=== PATIENT | female | born 1990 | race Caucasian/White ===

== ENCOUNTER 2017-01-22 16:19 | Emergency (ER) | payer BC ==
[2017-01-22 16:24] VITALS: BP 109/67
--- NOTE | 2017-01-22 16:28 | UC ---
Dental HPI - HPI Summary HPI Summary: tooth has been broken for a while, but I has broken more pain began 2 days ago- and now right side of face is swollen - History of Current Complaint Chief Complaint: UCDentalProblem Stated Complaint: TOOTH COMPLAINT Time Seen by Provider: 01/22/17 16:22 Hx Obtained From: Patient Hx Last Menstrual Period: 01/22/17 ?: No Onset/Duration: Worse Since - this morning awoke with swollen r side of lucas Severity: Severe Pain Intensity: 10 Aggravating: Heat, Cold, Chewing Alleviating: Nothing Related History: Previous Dental Care on Same Tooth - Allergies/Home Medications Allergies/Adverse Reactions: Allergies Allergy/AdvReac Type Severity Reaction Status Date / Time Penicillins Allergy Severe Hives Verified 01/22/17 16:25 Sulfa Drugs Allergy Severe Hives Verified 01/22/17 16:25 PMH/Surg Hx/FS Hx/Imm Hx Previously Healthy: No Psychological History: Anxiety - Surgical History Surgical History: Yes Surgery Procedure, Year, and Place: C-SECTIONS; TUBAL LIGATION; LUMP REMOVED LEFT LEG (BENIGN) - Family History Known Family History: Positive: None - Social History Occupation: Unemployed Lives: With Family Alcohol Use: Rare Substance Use Type: None Smoking Status (MU): Current Every Day Smoker Type: Cigarettes Amount Used/How Often: 1/2 PPD Household Exposure Type: Cigarettes Cessation Counseling: Patient Advised to Stop - Immunization History Most Recent Influenza Vaccination: never Most Recent Tetanus Shot: unknown Review of Systems Constitutional: Negative Skin: Negative Eyes: Negative ENT: Negative, Dental Pain - right lower last 2 molars Respiratory: Negative Cardiovascular: Negative Gastrointestinal: Negative Genitourinary: Negative Motor: Negative Neurovascular: Negative Musculoskeletal: Negative Neurological: Negative Psychological: Negative All Other Systems Reviewed And Are Negative: Yes Physical Exam Triage Information Reviewed: Yes Appearance: Well-Appearing, Well-Nourished, Pain Distress Vital Signs Reviewed: Yes Eye Exam: Normal Eyes: Positive: Conjunctiva Clear ENT Exam: Normal ENT: Positive: Normal ENT inspection, Hearing grossly normal, Pharynx normal. Negative: Nasal congestion, Nasal drainage, Trismus, Muffled/hoarse voice Dental Exam: Normal Dental: Positive: Percussion Tenderness @ - 31 &32, Gross Decay/Caries @ - 31& 31, Abscess @ - right lower jaw Neck exam: Normal Neck: Positive: Supple, Nontender, No Lymphadenopathy Respiratory Exam: Normal Respiratory: Positive: Chest non-tender, No respiratory distress, No accessory muscle use Cardiovascular Exam: Normal Cardiovascular: Positive: RRR, Pulses Normal, Brisk Capillary Refill Musculoskeletal Exam: Normal Musculoskeletal: Positive: Strength Intact, ROM Intact, No Edema Neurological Exam: Normal Neurological: Positive: Alert, Muscle Tone Normal Psychological Exam: Normal Skin Exam: Normal Dental Complaint Course/Dx - Course Course Of Treatment: Pain med, antibiodic, dental clinic information , follow with dentist [facility] on Tuesday - Differential Dx/Diagnosis Differential Diagnosis/Dx: Dental Abscess, Dental Caries, Odontogenic Pain Provider Diagnoses: Dental caries 31 & 32 with abscess Discharge - Discharge Plan Condition: Stable Disposition: HOME Prescriptions: Clindamycin Cap(NF) [Cleocin 300 mg Cap(NF)] 300 mg PO Q6H #40 cap HYDROcodone/ACETAMIN 5-325 MG* [[place] 5-325 TAB*] 1 tab PO Q6H PRN #15 tab MDD 4 PRN Reason: Pain Ibuprofen TAB* [Motrin TAB* 600 MG] 600 mg PO Q6H PRN #30 tab PRN Reason: Pain Patient Education Materials: Dental Abscess (ED), Toothache (ED) Referrals: Frantz Mcclellan MD [Primary Care Provider] - If Needed Additional Instructions: Follow with Dentist [facility]
[2017-01-22] MEDS ORDERED: HYDROcodone/ACETAMIN 5-325 MG* 1 TAB PO ONE (16:30)
== END 2017-01-22 16:45 | disposition home or self-care (01) ==
LOC: UCEAST 16:19
DX: K02.9 Dental caries, unspecified (principal); K04.7 Periapical abscess without sinus; Z72.0 Tobacco use
CPT/HCPCS: 99212; G0463

== ENCOUNTER 2017-06-07 18:16 | Emergency (ER) | payer SELFPAY ==
[2017-06-07 18:55] VITALS: BP 114/77
[2017-06-07] MEDS ORDERED: Clindamycin CAP* 150 MG PO ONE (20:09)
--- NOTE | 2017-06-07 20:13 | UC ---
UC Dental HPI - HPI Summary HPI Summary: RIGHT LOWER JAW DENTAL PAIN. TENDERNESS. HISTORY OF SAME CONCERN (01/22/17, , 05/31/15, 05/26/15). HAS NOT SEEN DENTIST DUE TO COST. NO FEVER. - History of Current Complaint Hx Obtained From: Patient Hx Last Menstrual Period: 05/08/17 Onset/Duration: Gradual Onset, Lasting Days, Still Present Related History: Previous Dental Care on Same Tooth <Meng Gaston - Last Filed: 06/07/17 20:06> <Sheri Rivera - Last Filed: 06/07/17 20:26> - History of Current Complaint Chief Complaint: UCDentalProblem Stated Complaint: TOOTH ACHE Time Seen by Provider: 06/07/17 19:32 - Allergies/Home Medications Allergies/Adverse Reactions: Allergies Allergy/AdvReac Type Severity Reaction Status Date / Time Penicillins Allergy Severe Hives Verified 06/07/17 18:48 Sulfa Drugs Allergy Severe Hives Verified 06/07/17 18:48 PMH/Surg Hx/FS Hx/Imm Hx Previously Healthy: Yes - Surgical History Surgical History: Yes Surgery Procedure, Year, and Place: C-SECTIONS; TUBAL LIGATION; LUMP REMOVED LEFT LEG (BENIGN) - Family History Known Family History: Positive: None - Social History Occupation: Works From/At Home Lives: With Family Alcohol Use: Rare Substance Use Type: None Smoking Status (MU): Current Every Day Smoker Type: Cigarettes Amount Used/How Often: 1/2 PPD Household Exposure Type: Cigarettes - Immunization History Most Recent Influenza Vaccination: never Most Recent Tetanus Shot: unknown <Meng Gaston - Last Filed: 06/07/17 20:06> Review of Systems Constitutional: Negative Skin: Negative Eyes: Negative ENT: Dental Pain Respiratory: Negative Cardiovascular: Negative Gastrointestinal: Negative Genitourinary: Negative Motor: Negative Neurovascular: Negative Musculoskeletal: Negative Neurological: Negative Psychological: Negative Is Patient Immunocompromised?: No All Other Systems Reviewed And Are Negative: Yes <Meng Gaston - Last Filed: 06/07/17 20:06> Physical Exam Triage Information Reviewed: Yes Appearance: Well-Appearing, No Pain Distress, Well-Nourished, Thin Vital Signs: Initial Vital Signs Temp 97.5 F 06/07/17 18:48 Pulse 86 06/07/17 18:48 Resp 18 06/07/17 18:48 BP 114/77 06/07/17 18:48 Pulse Ox 100 06/07/17 18:48 Vital Signs Reviewed: Yes Eye Exam: Normal ENT Exam: Normal ENT: Positive: Normal ENT inspection, Hearing grossly normal, Pharynx normal Dental: Positive: Percussion Tenderness @ - 29,30, Gross Decay/Caries @ Neck exam: Normal Neck: Positive: Supple, Nontender, No Lymphadenopathy Respiratory Exam: Normal Respiratory: Positive: Chest non-tender, Lungs clear, Normal breath sounds, No respiratory distress, No accessory muscle use Cardiovascular Exam: Normal Cardiovascular: Positive: RRR, No Murmur, Pulses Normal, Brisk Capillary Refill Abdominal Exam: Normal Musculoskeletal Exam: Normal Musculoskeletal: Positive: Strength Intact, ROM Intact Neurological Exam: Normal Psychological Exam: Normal Skin Exam: Normal <Meng Gaston - Last Filed: 06/07/17 20:06> Vital Signs: Initial Vital Signs Temp 97.5 F 06/07/17 18:48 Pulse 86 06/07/17 18:48 Resp 18 06/07/17 18:48 BP 114/77 06/07/17 18:48 Pulse Ox 100 06/07/17 18:48 <Sheri Rivera - Last Filed: 06/07/17 20:26> Dental Complaint Course/Dx - Differential Dx/Diagnosis Differential Diagnosis/Dx: Dental Abscess, Fractured Tooth, Odontogenic Pain Provider Diagnoses: ODONTOGENIC PAIN (#29,30) <Meng Gaston - Last Filed: 06/07/17 20:06> Discharge <Meng Gaston - Last Filed: 06/07/17 20:06> <Sheri Rivera - Last Filed: 06/07/17 20:26> - Discharge Plan Condition: Stable Disposition: HOME Prescriptions: Clindamycin Cap(NF) [Clindamycin Cap 300 mg Cap(NF)] 300 mg PO TID #30 cap Tramadol HCl [Ultram] 50 mg PO TID PRN #15 tab MDD three tabs PRN Reason: Pain Patient Education Materials: Dental Abscess (ED), Toothache (ED) Referrals: Frantz Mcclellan MD [Primary Care Provider] - Additional Instructions: DENTAL REFERRAL GIVEN Images Dental: 1 - TENDER HERE <Meng Gaston - Last Filed: 06/07/17 20:06> Attestation Statement User Type: Provider - I was available for consult. This patient was seen by the TIA. The patient was not presented to, seen by, or examined by me. -Erica <Sheri Rivera - Last Filed: 06/07/17 20:26>
== END 2017-06-07 20:15 | disposition home or self-care (01) ==
LOC: UCEAST 18:16
DX: K08.89 Other specified disorders of teeth and supporting structures (principal); F17.210 Nicotine dependence, cigarettes, uncomplicated
CPT/HCPCS: 99212; A9270-GY; G0463